=== PATIENT | female | born 1970 | race Caucasian/White ===

== ENCOUNTER → 2017-06-11 | Outpatient (REF) | payer BC | LOC: M LAB REF 09:43 | DX: N39.0 Urinary tract infection, site not specified (principal) | CPT/HCPCS: 87186 ==

== ENCOUNTER 2018-03-13 11:31 | Emergency (ER) | payer BC | END 2018-03-13 13:21 | disposition home or self-care (01) | LOC: M ED 11:31 | DX: S13.4XXA Sprain of ligaments of cervical spine, initial encounter (principal); T14.8XXA Other injury of unspecified body region, initial encounter; V86.52XA Driver of snowmobile injured in nontraffic accident, initial encounter; Y92.89 Other specified places as the place of occurrence of the external cause; Z79.899 Other long term (current) drug therapy | CPT/HCPCS: 73130 ==

== ENCOUNTER 2018-11-01 10:25 | Emergency (ER) | payer BC ==
[~2018-11-01] VITALS: Ht 167.6 cm; Wt 75.0 kg
[~2018-11-01 10:25] MED LIST: BACL10TA2 PO; IBUP-1022 PO
[2018-11-01 11:05] LABS: BASO # 0.1 10^3/uL (0.0-0.2); BASO % 0.8 % (0.0-1.0); EOS # 0.4 10^3/uL (0.0-0.50); EOS % 4.5 % (0.0-3.0); HEMATOCRIT 39.8 % (36.0-47.0); HEMOGLOBIN 13.8 g/dl (12.0-15.5); LYMPH # 1.9 10^3/uL (1.5-4.5); LYMPH % 23.8 % (24.0-44.0); MEAN CORPUSCULAR HEMOGLOBIN 30.9 pg (27.0-33.0); MEAN CORPUSCULAR HGB CONC 34.7 g/dl (32.0-36.5); MEAN CORPUSCULAR VOLUME 89.2 fl (80.0-96.0); MONO # 0.6 10^3/uL (0.0-0.8); MONO % 7.7 % (0.0-5.0); NEUTROPHILS % 62.7 % (36.0-66.0); PLATELET COUNT, AUTOMATED 299 10^3/uL (150-450); RED BLOOD COUNT 4.46 10^6/uL (4.00-5.40); WHITE BLOOD COUNT 7.9 10^3/uL (4.0-10.0)
[2018-11-01 11:10] LABS: BLOOD UREA NITROGEN 18 MG/DL (7-18); CALCIUM LEVEL 9.2 MG/DL (8.5-10.1); CARBON DIOXIDE LEVEL 29 MEQ/L (21-32); CHLORIDE LEVEL 105 MEQ/L (98-107); CK-MB VALUE MASS < 1.0 NG/ML (<3.6); CPK CREATINE PHOSPHOKINASE 49 U/L (26-192); CREATININE FOR GFR 0.75 MG/DL (0.55-1.30); GLOMERULAR FILTRATION RATE > 60.0 (>51); GLUCOSE, FASTING 84 MG/DL (70-100); MB/CK RELATIVE INDEX 2.04 (< OR =4); POTASSIUM SERUM 4.6 MEQ/L (3.5-5.1); SODIUM LEVEL 141 MEQ/L (136-145); TROPONIN I < 0.02 NG/ML (< 0.10)
--- NOTE | 2018-11-01 11:52 | REP ---
CHEST, SINGLE VIEW: There is no evidence of acute infiltrate. No pleural effusion is seen. The heart is normal in size. The mediastinal silhouette is unremarkable. The visualized osseous structures are intact. IMPRESSION: No acute pulmonary disease. Electronically Signed by Stewart Peter MD 11/01/2018 02:13 P
[2018-11-01] MEDS ORDERED: IPRATROPIUM 0.5MG/ALBUTEROL 2.5MG INH SOL UD 3ML (DUONEB)(J7620) NEB ONE (12:15)
[2018-11-01] MEDS ORDERED: ISOVUE-370 76% 100ML VIAL (Q9967) As Ordered ONE (12:26)
[2018-11-01] MEDS ORDERED: IBUPROFEN 800 MG TAB PO ONE (12:30)
[2018-11-01 12:37] LABS: FREE T4 0.84 NG/DL (0.76-1.46); THYROID STIMULATING HORMONE 1.55 uIU/ML (0.358-3.740)
--- NOTE | 2018-11-01 13:31 | REP ---
Clinical: Acute pleuritic chest pain. Technique: Axial contrast enhanced images from the thoracic inlet to the upper abdomen using 100 ml Isovue 370 intravenous contrast material with coronal and sagittal re-formations. Findings: Satisfactory enhancement of the pulmonary vasculature is achieved and no filling defects are identified to suggest pulmonary embolus. Thoracic aorta is normal caliber without aneurysm or dissection. Heart and pericardium are normal. Bilateral lung leslie are well aerated and clear without acute pulmonary parenchymal consolidation or atelectasis. No nodule or mass lesion. No pleural effusion/reaction. No pneumothorax. No adenopathy. Evidence for bilateral mammoplasty. Impression: No evidence for pulmonary embolus. No acute pleuroparenchymal or mediastinal process. Electronically Signed by Reji Castro MD 11/01/2018 01:23 P
[2018-11-01 14:27] LABS: CK-MB VALUE MASS < 1.0 NG/ML (<3.6); CPK CREATINE PHOSPHOKINASE 44 U/L (26-192); MB/CK RELATIVE INDEX 2.27 (< OR =4); TROPONIN I < 0.02 NG/ML (< 0.10)
[2018-11-01 15:45] VITALS: BP 134/79
--- NOTE | 2018-11-01 19:45 | ECGEPIP ---
[facility] - ED Test Date: 2018-11-01 Pat Name: MARVA ESPINAL Department: Room: - Gender: Female External Relations Director: jaene : 1970 Requested By: Garcia Wright Order Number: [id number] Reading MD: Stephan Elizabeth Measurements Intervals [place] Rate: 61 P: 24 [place]: 177 QRS: QRSD: 79 T: 22 QT: 374 QTc: 377 Interpretive Statements SINUS RHYTHM Inferior Q waves of uncertain significance Delayed anterior R wave progression BORDERLINE LEFT AXIS DEVIATION Similar to tracing done 05-14-16 Electronically Signed on 11-01-2018 19:45:08 EDT by Stephan Elizabeth
== END 2018-11-01 16:08 | disposition home or self-care (01) ==
LOC: M ED 10:25
DX: R07.89 Other chest pain (principal)
CPT/HCPCS: 36415; 71045; 71275; 80048; 82550; 82553; 84439; 84443; 84484; 85025; 93005; 93041; 94760; 99285; Q9967

== ENCOUNTER → 2021-05-07 | Outpatient (CLI) | payer BC | LOC: M WHC 10:00 | PROVIDERS: ATTEND Nurse Practitioner | DX: Z12.31 Encounter for screening mammogram for malignant neoplasm of breast (principal); Z98.82 Breast implant status ==

== ENCOUNTER → 2021-05-07 | Outpatient (CLI) | payer BC | LOC: M WUC 11:57 | PROVIDERS: ATTEND Nurse Practitioner | DX: M19.042 Primary osteoarthritis, left hand (principal); M25.562 Pain in left knee ==

== ENCOUNTER → 2023-03-21 | Outpatient (CLI) | payer BC | LOC: M WHC 13:36 | PROVIDERS: ATTEND Internal Medicine | DX: N28.1 Cyst of kidney, acquired (principal) ==